=== PATIENT | male | born 1985 | race Caucasian/White ===

== ENCOUNTER 2018-06-16 13:14 | Day surgery (SDC) | payer OTHER ==
[2018-06-16] MEDS ORDERED: LR 1,000 ML IV ONE (13:45)
[2018-06-16] MEDS ORDERED: LIDOCAINE 1% 2 ML INJ ID PRN (13:45)
--- NOTE | 2018-06-16 14:51 | PDHPUP ---
History & Physical Update H&P update statement: This history and physical update is based on an assessment of the patient which was completed after admission or registration (within 24 hours), but prior to the surgery/procedure. H&P update: H&P reviewed & patient examined, no change in patient's condition since H&P completed
[2018-06-16] MEDS ORDERED: LIDOCAINE 1% 300 MG/30 ML SDV ONE (15:13)
[2018-06-16] MEDS ORDERED: BUPIVACAINE 0.5% 30 ML SDV ONE (15:14)
[2018-06-16] MEDS ORDERED: MIDAZOLAM 2 MG/2 ML VIAL IVP ONE (15:54)
--- NOTE | 2018-06-16 15:57 | PDANEPAE ---
ANE History of Present Illness Laparoscopic inguinal hernia ANE Past Medical History - Cardiovascular History Hx Hypertension: No Hx Arrhythmias: No Hx Chest Pain: No Hx Coronary Artery / Peripheral Vascular Disease: No Hx CHF / Valvular Disease: No Hx Palpitations: No - Pulmonary History Hx COPD: No Hx Asthma/Reactive Airway Disease: No Hx Recent Upper Respiratory Infection: No Hx Oxygen in Use at Home: No Hx Sleep Apnea: No Sleep Apnea Screening Result - Last Documented: Negative - Neurologic History Hx Cerebrovascular Accident: No Hx Seizures: No Hx Dementia: No - Endocrine History Hx Diabetes: No Hypothyroid: No Hyperthyroid: No Obesity: no - Renal History Hx Renal Disorders: No - Liver History Hx Hepatic Disorders: No - Neurological & Psychiatric Hx Hx Neurological and Psychiatric Disorders: No - Cancer History Hx Cancer: No - Congenital Disorder History Hx Congenital Disorders: No - GI History Hx Gastrointestinal Disorders: Yes Gastrointestinal History Comment: esophageal stricture - Other Health History Other Health History: none - Chronic Pain History Chronic Pain: No - Surgical History Prior Surgeries: none last 5 yrs. left inguinal hernia repair ANE Review of Systems Review of Systems: - Exercise capacity METS (RN): 5 METS ANE Patient History - Allergies Allergies/Adverse Reactions: No Known Allergies Allergy (Verified 06/13/18 17:10) - Home Medications Home medications: home medication list seen and reviewed Home Medications: NK [No Known Home Meds] 06/13/18 [Last Taken Unknown] - NPO status NPO Status: no food or drink >8 hours NPO Since - Liquids (Date): 06/16/18 NPO Since - Liquids (Time): 12:00 NPO Since - Solids (Date): 06/15/18 NPO Since - Solids (Time): 21:00 - Anes Hx Anes Hx: no prior problems - Smoking Hx Smoking Status: Never smoked Marijuana use: No - Alcohol Use Alcohol Use: Occasionally - Family Anes Hx Family Anes Hx: none Family Hx Anesthesia Complications: none ANE Labs/Vital Signs - Vital Signs Blood Pressure: 136/88 Heart Rate: 76 Respiratory Rate: 16 O2 Sat (%): 97 Height: 190.5 cm Weight: 92.986 kg ANE Physical Exam - Airway Neck exam: FROM Mallampati Score: Class 1 Mouth exam: normal dental/mouth exam - Pulmonary Pulmonary: no respiratory distress, no rales or rhonchi - Cardiovascular Cardiovascular: regular rate and rhythym, no murmur, rub, or gallop - ASA Status ASA Status: I ANE Anesthesia Plan Anesthesia Plan: general endotracheal anesthesia
[2018-06-16] MEDS ORDERED: fentaNYL 250 MCG/5 ML INJ ONE (16:08)
[2018-06-16] MEDS ORDERED: GLYCOPYRROLATE 0.2 MG/1 ML VIAL ONE ×4 (16:09→17:25)
[2018-06-16] MEDS ORDERED: ONDANSETRON 4 MG/2 ML VIAL ONE (16:09)
[2018-06-16] MEDS ORDERED: KETOROLAC 30 MG/1 ML SDV ONE (16:09)
[2018-06-16] MEDS ORDERED: DEXAMETHASONE 4 MG/ML VIAL ONE (16:09)
[2018-06-16] MEDS ORDERED: PROPOFOL/EMULSION 500 MG/50 ML BOTTLE IV ONE (16:09)
[2018-06-16] MEDS ORDERED: PROPOFOL 200 MG/20 ML VIAL ONE (16:09)
[2018-06-16] MEDS ORDERED: ROCURONIUM 50 MG/5 ML VIAL ONE ×2 (16:09→17:03)
[2018-06-16] MEDS ORDERED: fentaNYL 100 MCG/2 ML INJ ONE (17:10)
[2018-06-16] MEDS ORDERED: NEOSTIGMINE METHYLSULFATE 5 MG/5 ML SYR ONE (17:25)
[2018-06-16] MEDS ORDERED: PROMETHAZINE HCL 25 MG/ML INJ IVP PRN (17:44)
[2018-06-16] MEDS ORDERED: HYDROmorphONE/DILAUDID 1 MG/ML INJ IVP PRN (17:44)
[2018-06-16] MEDS ORDERED: HYDROCODONE/APAP 5/325 TAB PO PRN (17:44)
[2018-06-16] MEDS ORDERED: oxyCODONE IR 5 MG TAB PO PRN (17:44)
[2018-06-16] MEDS ORDERED: DIAZEPAM 5 MG/ML 1 ML SYR IVP PRN (17:44)
[2018-06-16] MEDS ORDERED: NALOXONE HCL 0.4 MG/ML INJ IVP PRN (17:44)
[2018-06-16] MEDS ORDERED: fentaNYL 100 MCG/2 ML INJ IVP PRN (17:44)
[2018-06-16] MEDS ORDERED: ONDANSETRON 4 MG/2 ML VIAL IVP PRN (17:44)
--- NOTE | 2018-06-16 17:45 | POSTANESTH ---
Post Anesthetic Evaluation Cardiovascular Status: Normal, Stable Respiratory Status: Normal, Stable Level of Consciousness/Mental Status: Can Participate in Eval Pain Control: Adequate, Prn Tx Ordered Nausea/Vomiting Control: Adequate, Prn Tx Ordered Complications Possibly Related to Anesthesia: None Noted
--- NOTE | 2018-06-16 18:18 | POSTOPPROG ---
Post Op Note Date of Operation: 06/16/18 Surgeon: Huber Huber House Designer: none Anesthesiologist: Bradford Terry Anesthesia: GET(General Endotracheal) Pre-op Diagnosis: RIH Post-op Diagnosis: same Procedure: Lap TEP Right IH repair with mesh Findings: Large indirect Inf/Abcess present in the surg proc area at time of surgery?: No EBL: Minimal Specimen(s): none
--- NOTE | 2018-06-16 18:57 | GOP ---
[f rep st] OPERATIVE REPORT DATE OF OPERATION: SURGEON: Huber Huber MD ANESTHESIA: General endotracheal anesthesia was used. ANESTHESIOLOGIST: Dr. Karma Terry PREOPERATIVE DIAGNOSIS: Right inguinal hernia. POSTOPERATIVE DIAGNOSIS: Right inguinal hernia. PROCEDURE PERFORMED: Laparoscopic TEP right inguinal hernia repair with 3D Max mesh, large. FINDINGS: Large indirect right inguinal hernia. DESCRIPTION OF PROCEDURE: Patient was brought to the operating room. After induction of endotrachea l anesthesia in a supine position, the abdomen was prepped with chlorhexidine and draped sterilely. Time-out procedure was then performed according to the institutional standards. Local anesthetic inf used in the skin and subcutaneous tissues of the trocar sites as well as a field block. The preperit spaulding space was entered by making an incision infraumbilically, deepened this with electrocautery, di viding the fascia sharply. The rectus muscle was swept laterally and working trocars were then place d after balloon dissection and insufflation to 15 torr. The right direct inguinal space is not affec federico. The indirect space is filled with a large hernia that extends into the scrotum. Traction was u sed on the peritoneum to bring this into the preperitoneal space and the area is made hemostatic. Th e space is dissected from the anterior superior iliac spine to the pubic tubercle and a 3D Max mesh w as interposed between the hernia defect and the peritoneum that has been reduced. After insuring hem ostasis, needle, instrument, sponge counts were assured to be correct. The air was deflated. The me sh was in good apposition to the abdominal wall without any signs of compromise. Working trocars wer e removed. The fascia was reapproximated using 0 Vicryl suture and the skin was reapproximated in al l 3 ports using 4-0 Monocryl. Dermabond was applied. The patient was awakened, extubated, taken to recovery room in stable condition. Needle, instrument, and sponge counts were found to be correct x2 . 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 The patient had a previous left inguinal hernia repair for the FITO inguinal hernia repair about 7 years ago. The patient has n o intestinal or urinary obstructive symptoms. COMPLICATIONS: There were no complications. /[id number]/MODL
[2018-06-16 19:04] VITALS: BP 138/84
== END 2018-06-16 19:05 | disposition home or self-care (01) ==
LOC: FSGY 13:14
PROVIDERS: ATTEND Surgery
PROC: 0YQ54ZZ Repair Right Inguinal Region, Percutaneous Endoscopic Approach (ICD-10-PCS; principal; 2018-06-16 15:00)
PROC: 0YU54JZ Supplement Right Inguinal Region with Synthetic Substitute, Percutaneous Endoscopic Approach (ICD-10-PCS; principal; 2018-06-16 15:00)
DX: K40.90 Unilateral inguinal hernia, without obstruction or gangrene, not specified as recurrent (principal)
CPT/HCPCS: C1727; C1781; J1100; J1885; J2250; J2405; J2704; J2710; J3010